=== PATIENT | male | born 1950 | race Caucasian/White ===

== ENCOUNTER 2023-01-22 10:18 | Inpatient (IN) ==
--- NOTE | 2022-12-20 16:07 | PAT Medication Instructions ---
Medication Instructions Date of Service December 20, 2022 Home Medications albuterol sulfate 90 mcg/actuation aerosol inhaler 2 inh inhalation QID PRN sob amlodipine 5 mg tablet 5 mg PO HS apixaban 5 mg tablet (Eliquis) 5 mg PO BID aspirin 81 mg capsule 81 mg PO QAM atorvastatin 40 mg tablet 40 mg PO QAM lisinopril 10 mg tablet 10 mg PO QAM tiotropium bromide 2.5 mcg/actuation mist for inhalation (Spiriva Respimat) 2 inh inhalation QAM ASK your prescriber and surgeon apixaban 5 mg tablet (Eliquis) 5 mg PO BID aspirin 81 mg capsule 81 mg PO QAM DO NOT take the morning of surgery lisinopril 10 mg tablet 10 mg PO QAM Take morning of surgery With a small sip of water, OTHERWISE NOTHING TO EAT OR DRINK AFTER MIDNIGHT: albuterol sulfate 90 mcg/actuation aerosol inhaler 2 inh inhalation QID PRN sob (use if needed; please bring with you to hospital day of surgery if possible) atorvastatin 40 mg tablet 40 mg PO QAM tiotropium bromide 2.5 mcg/actuation mist for inhalation (Spiriva Respimat) 2 inh inhalation QAM Take evening before surgery albuterol sulfate 90 mcg/actuation aerosol inhaler 2 inh inhalation QID PRN sob (if needed) amlodipine 5 mg tablet 5 mg PO HS Other Notes If you have any questions please call us at [phone] or [phone] or [phone] or [phone]
--- NOTE | 2022-12-29 11:17 | Anesthesiology Consultation ---
Date of Service December 29, 2022 Assessment & Plan (1) Encounter for pre-operative examination: - will attempt obtain copy of 12/25/22 PCP medical clearance and [address] [facility]. 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 Severely limited cervical extension s/p cervical fusions and h/o awake fiberoptic intubation for prostate surgery per (cardiac, OR nurse). C3-C5 posterior cervical discectomy: MAC 3, ETT 7.5 [facility]. - anesthesiologist request: Dr. Diaz. Case discussed with Dr. Diaz who advised patient could be intubated with glidescope. Anesthesiologist request marked for OR and anesthesia team, patient and his are aware this will be requested if Dr. Diaz is on the schedule that day. Chart Review Chart Review: Pending: Refer to Additional Notes / Consult section and Patient seen in Pre Admission Testing History Surgery Operation Date: 01/22/23 09:35 Proposed Procedures p L2-L3 Spinal Decompression and Fusion, Removal of Hardware L3-S1, Re- Instrumentation L3-S1 Spinal Cord Monitoring - Leroy Costa, Height/Weight Height: 5 ft 8 in Weight: 80.4 kg Allergies Allergy/AdvReac Type Severity Reaction Status Date / Time dexamethasone [From Decadron] AdvReac Intermediate Anxiety Verified 12/29/22 11:26 Medications Home Medications Medication Instructions Recorded Confirmed Last Taken albuterol sulfate 90 mcg/actuation 2 inh inhalation QID PRN sob 12/19/22 12/19/22 Unknown aerosol inhaler amlodipine 5 mg tablet 5 mg PO HS 12/19/22 12/19/22 Unknown apixaban 5 mg tablet (Eliquis) 5 mg PO BID 12/19/22 12/19/22 Unknown aspirin 81 mg capsule 81 mg PO QAM 12/19/22 12/19/22 Unknown atorvastatin 40 mg tablet 40 mg PO QAM 12/19/22 12/19/22 Unknown lisinopril 10 mg tablet 10 mg PO QAM 12/19/22 12/19/22 Unknown tiotropium bromide 2.5 2 inh inhalation QAM 12/19/22 12/19/22 Unknown mcg/actuation mist for inhalation (Spiriva Respimat) cholecalciferol (vitamin D3) 50 50 mcg PO QPM 12/29/22 12/29/22 Unknown mcg (2,000 unit) tablet (Vitamin D3) multivitamin 1 tab PO QPM 12/29/22 12/29/22 Unknown zinc gluconate 50 mg tablet 50 mg PO QPM 12/29/22 12/29/22 Unknown Additional Notes: Patient also takes multivitamin, Vitamin D and zinc usually in the evening. He was instructed and it was written on provided medication instructions to not take medication morning of surgery, can be taken afternoon or evening prior to surgery. Patient and his verbalized understanding and agreement, denied questions, concerns or additional medications/supplements. 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 patient had an episode where he "lost several hours" (2021) treated at [facility] Emergency Room. no current issues/no recent episode. History of giardia infection 2015 - no current issues Anxiety situational - specifically after spine surgery History of COVID-2021: no symptoms -- tested due to an exposure at the time. Hypertension Hyperlipidemia Chronic obstructive pulmonary disease "mild" and well controlled-last albuterol inhaler use last night-average daily use Degenerative disc disease Chronic back pain Hx of agent [place] exposure Bladder cancer dx 2008 Prostate cancer dx 2008 - prostatectomy On anticoagulant therapy History of cardioversion 06/2019 - "in and out of a.fib all the time" Atrial fibrillation dx 2019 --- follows with PCP Patient denies h/o seizures, heart attack, heart failure, DM, blood clots/DVTs or blood transfusions. Exercise / Class Metabolic Activity II 4-5 Yardwork/Stairs/Walk up hill (chronic shortness of breath ongoing x several yrs with 1 FOS; denies change or worsening-resolves with inhaler use; denies chest discomfort) Past Family History Family History Other No family history of adverse response to anesthesia Past Surgical History Surgical History History of cardiac cath last done ~2019 - no stents at [facility]. History of colonoscopy 2018 H/O lumbar discectomy with revision of lumbar fusion 2018 Hx of cervical spine surgery posterior cervical laminectomy 1982 S/P rotator cuff repair open left 2017 H/O arthroscopy of shoulder left shoulder 2017 H/O cystoscopy [id number] 2022 H/O prostatectomy total with Davinci 2008 H/O transurethral resection of bladder tumor (TURBT) 2008 S/P lumbar fusion L3/L4 L5/L6 2014 Status post cervical spinal fusion ACDF C2-C3 1985 S/P cervical spinal fusion posterior C1-C2 2012 S/P lumbar laminectomy 1979 Past Anesthesia History No Hx of Anesthesia Complications and No Family Hx of Anesthesia Complications History of PONV No Hx of PONV and No Hx of Motion Sickness Social History Smoking Status: Former smoker Do You Dip or Chew Tobacco: No Smoking End Date: 1986 Hx Alcohol Use: No Hx Substance Use: No substance use type: does not use Review of Systems Rare palpitations, denies associated dizziness, lightheadedness, chest discomfort or shortness of breath with palpitations. Occasional snoring, denies witnessed apneas. Patient denies chest pain, reflux, fever, chills, cough, or wheezing. Physical Exam Vital Signs Vitals BP 147/81 P 57 TEMP 98.6 SP02 96% on RA RESP 17 Physical Patient resting comfortably in chair in no acute distress, alert and oriented, responding appropriately throughout visit Severely limited cervical extension range of motion without pain TMD 3.5 finger breadths Mallampati Score 3 Dentition: intact, denies chipped or loose teeth, caps/crowns, implants or bridges Lungs: normal respiratory effort. Good air movement, clear throughout to auscultation, no adventitious breath sounds Cardiac: regular rate and rhythm, no murmurs noted Carotid arteries: negative bruit bilat Lab Results Anesthesia Preop Results Results Anesthesia Widget: Urine Color Yellow 12/29/22 Urine Appearance Clear (Clear) 12/29/22 Urine pH 7.5 (4.5-7.5) 12/29/22 Urine Specific [place] 1.019 (1.000-1.030) 12/29/22 Urine Protein Negative (Negative) 12/29/22 Urine Glucose (UA) Negative (Negative) 12/29/22 Urine Ketones Negative (Negative) 12/29/22 Urine Blood Negative (Negative) 12/29/22 Urine Nitrite Negative (Negative) 12/29/22 Urine Bilirubin Negative (Negative) 12/29/22 Urine Urobilinogen Negative (Negative) 12/29/22 Urine Leukocyte Esterase Negative (Negative) 12/29/22 Blood Type A Positive 12/29/22 Antibody Screen NEGATIVE 12/29/22 Testing Laboratory Results 12/21/2022 WBC: 5.9 H/H: 14/44 PLATELETS: 196 SODIUM: 140 POTASSIUM: 4.3 CHLORIDE: 105 CO2: 28 BUN: 20 CREATININE: 1 GLUCOSE: 108 PT: 14 PTT: 32 INR: 1.2 Electrocardiogram Date: 12/29/22 Afib with slow ventricular response, rate 54 bpm Chest X-Ray Date: 12/21/22 No acute intrathoracic process Echocardiogram Date: 07/07/19 KIARA EF 55% Normal LV wall motion RVSP 68 mmHg (see stress echo PA pressure 07/2019) Severely dilated LA Stress Test Date: 07/08/19 Pharmacologic No evidence of ischemic change or old RI Normal LV wall motion EF 60% Cardiac Catheterization Date: 07/21/19 Left main: no angiographically significant disease LAD: no angiographically significant disease LCx: no angiographically significant disease RCA: no angiographically significant disease Borderline mild pulmonary hypertension, mean PA pressure 27 mmHg
[~2023-01-22 10:18] MED LIST: ACETAMINOPHEN 500 MG TAB PO SCH; CeleBREX 200 MG CAP PO SCH; DexMEDEtomidine HCL IV 100 MCG/ML VIAL IV ONE; GABAPENTIN 300 MG CAP PO SCH; LR 15ML/HR IV SCH; LR 60ML/HR IV SCH
[2023-01-22] MEDS ORDERED: LIDOCAINE 2% 2 ML VIAL/AMP(20MG/ML) INFIL ONE (11:01)
[2023-01-22] MEDS ORDERED: PROPOFOL IV EMULSION 10 MG/ML 20 ML VIAL IV ONE (11:01)
[2023-01-22] MEDS ORDERED: ONDANSETRON INJ 2 MG/ML 2 ML VIAL ONE (11:01)
[2023-01-22] MEDS ORDERED: fentaNYL citrate PF 100 MCG/2 ML VIAL ONE ×2 (11:01→13:01)
--- NOTE | 2023-01-22 12:14 | History & Physical Bridge Note ---
Date of Service January 22, 2023 History & Physical Bridge Note I have examined the patient, reviewed the History & Physical and in the interval since the performance of the History & Physical I have noted the following changes of clinical significance: no changes noted
--- NOTE | 2023-01-22 12:15 | History & Physical Report ---
Date of Service January 22, 2023 Assessment & Plan (1) Neurogenic claudication due to lumbar spinal stenosis: Plan: L2-L3 decompression and fusion, removal of hardware L3-S1, reinstrumentation L3- S1 History of Present Illness Chief Complaint: Back pain Primary Care Provider: Charles Plata DO This is a 72-year-old male who presents with chronic persistent back and leg pain after failing extensive course of nonoperative care is here for surgical invention. Allergies Allergy/AdvReac Type Severity Reaction Status Date / Time dexamethasone [From Decadron] AdvReac Intermediate Anxiety Verified 01/22/23 10:52 Home Medications Medication Instructions Recorded Confirmed Type albuterol sulfate 90 mcg/actuation 2 inh inhalation QID PRN sob 12/19/22 01/22/23 History aerosol inhaler amlodipine 5 mg tablet 5 mg PO HS 12/19/22 01/22/23 History apixaban 5 mg tablet (Eliquis) 5 mg PO BID 12/19/22 01/22/23 History aspirin 81 mg capsule 81 mg PO QAM 12/19/22 01/22/23 History atorvastatin 40 mg tablet 40 mg PO QAM 12/19/22 01/22/23 History lisinopril 10 mg tablet 10 mg PO QAM 12/19/22 01/22/23 History tiotropium bromide 2.5 2 inh inhalation QAM 12/19/22 01/22/23 History mcg/actuation mist for inhalation (Spiriva Respimat) cholecalciferol (vitamin D3) 50 50 mcg PO QPM 12/29/22 01/22/23 History mcg (2,000 unit) tablet (Vitamin D3) multivitamin 1 tab PO QPM 12/29/22 01/22/23 History zinc gluconate 50 mg tablet 50 mg PO QPM 12/29/22 01/22/23 History Past Med/Surg History Medical History (Updated 01/22/23 @ 12:15 by Leroy Costa DO) Difficult intubation 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 Severely limited cervical extension s/p cervical fusions and h/o awake fiberoptic intubation for prostate surgery per (cardiac, OR nurse). C3- C5 posterior cervical discectomy: MAC 3, ETT 7.5 [facility]. 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 patient had an episode where he "lost several hours" (2021) treated at [facility] Emergency Room. no current issues/no recent episode. History of giardia infection 2016 - no current issues Anxiety situational - specifically after spine surgery History of COVID-19 2021: no symptoms -- tested due to an exposure at the time. Hypertension Hyperlipidemia Chronic obstructive pulmonary disease "mild" and well controlled-last albuterol inhaler use last night-average daily use Degenerative disc disease Chronic back pain Hx of agent [place] exposure Bladder cancer dx 2008 Prostate cancer dx 2008 - prostatectomy On anticoagulant therapy History of cardioversion 06/2019 - "in and out of a.fib all the time" Atrial fibrillation dx 2019 --- follows with PCP Surgical History History of cardiac cath last done ~2019 - no stents at [facility]. History of colonoscopy 2018 H/O lumbar discectomy with revision of lumbar fusion 2018 Hx of cervical spine surgery posterior cervical laminectomy 1981 S/P rotator cuff repair open left 2017 H/O arthroscopy of shoulder left shoulder 2017 H/O cystoscopy [id number] 2022 H/O prostatectomy total with Davinci 2009 H/O transurethral resection of bladder tumor (TURBT) 2008 S/P lumbar fusion L3/L4 L5/L6 2014 Status post cervical spinal fusion ACDF C2-C3 1985 S/P cervical spinal fusion posterior C1-C2 2012 S/P lumbar laminectomy 1979 Family History Other No family history of adverse response to anesthesia Social History Smoking Status: Former smoker Tobacco Type: Cigarettes Smoking End Date: 1986; Second Hand Exposure: No; Do You Dip or Chew Tobacco: No; Tobacco Cessation Education Requested by Patient: No Hx Alcohol Use: No Hx Substance Use: No Preferred Language: Yakut Communication Ability: Effective Business Analyst Project Manager Required: No Beliefs That Will Affect Care: None Current Living Situation: Spouse Other Information That Helps Us Care for You: No Feels Safe at Home: Yes Safety Concerns: Feels Safe At This Time Assistive Devices: Glasses Physical Exam Physical Exam: Patient is alert and oriented Heart regular rhythm Lungs clear Results & Data Results & Data Vital Signs (Past 12 Hours) Vital Signs Temp Pulse Resp BP Pulse Ox O2 Del Method 01/22/23 11:26 70 20 185/97 H 98 Room Air 01/22/23 10:44 36.6 C 60 20 187/115 H 98 Room Air
[2023-01-22] MEDS ORDERED: PROMETHAZINE HCL 12.5 MG in SODIUM CHLORIDE 0.9% 50 ML IV PRN ×2 (12:31→16:59)
[2023-01-22] MEDS ORDERED: ATROPINE SULFATE 0.1 MG/ML 10ML SYR IV PRN (12:31)
[2023-01-22] MEDS ORDERED: ePHEDrine sulfate 50 MG/ML AMP IV PRN (12:31)
[2023-01-22] MEDS ORDERED: FLUMAZENIL 0.1 MG/1 ML 10 ML VIAL IV PRN (12:31)
[2023-01-22] MEDS ORDERED: LABETALOL HCL IV 5 MG/ML 20ML IV PRN (12:31)
[2023-01-22] MEDS ORDERED: ONDANSETRON INJ 2 MG/ML 2 ML VIAL IV PRN ×2 (12:31→16:59)
[2023-01-22] MEDS ORDERED: NALOXONE HCL 0.4 MG/1 ML VIAL/CARP IV PRN ×2 (12:31→16:59)
[2023-01-22] MEDS ORDERED: BUPIVACAINE/EPINEPHRINE 0.25% 1:200,000 30 ML VIAL ONE (12:34)
[2023-01-22] MEDS ORDERED: SODIUM CHLORIDE 0.9% 250 ML IV PRN (12:34)
[2023-01-22] MEDS ORDERED: ceFAZolin 330 MG/ML 1 GM VIAL ONE (12:35)
[2023-01-22] MEDS ORDERED: ROCURONIUM BROMIDE 10 MG/ML 5 ML VIAL IV ONE (12:39)
[2023-01-22] MEDS ORDERED: MIDAZOLAM HCL 1 MG/ML 2ML VIAL ONE (12:57)
[2023-01-22] MEDS ORDERED: PHENYLEPHRINE 100MCG/ML 10ML SYR IV ONE (13:43)
[2023-01-22] MEDS ORDERED: ePHEDrine sulfate 50 MG/5 ML SYR ONE (13:43)
[2023-01-22] MEDS ORDERED: ALBUMIN HUMAN 5% 12.5 GM/250 ML VIAL IV ONE (14:24)
[2023-01-22] MEDS ORDERED: FLOSEAL HEMOSTATIC MATRIX 10ML TOP ONE (14:49)
[2023-01-22] MEDS ORDERED: SUGAMMADEX SODIUM 200 MG/2 ML VIAL IV ONE (14:52)
--- NOTE | 2023-01-22 15:01 | Operative Report ---
Post Operative Report Pre & Post Diagnosis Operation Date: 01/22/23 11:55 Pre-Op Diagnosis: Neurogenic Claudication due to Lumbar Spinal Stenosis Post-Op Diagnosis: Neurogenic Claudication due to Lumbar Spinal Stenosis I identified the patient and participated in the time-out.: Yes Procedure Operation Date: 01/22/23 11:55 Actual Procedures #1 removal of posterior segmental instrumentation L3-S1. #2 exploration of fusion L3-S1. #3 number decompression with bilateral medial facetectomies and foraminotomies L2-L3. #4 posterior spinal fusion L2-L3. #5 placement posterior instrumentation L2-S1. #6 interbody fusion L2-L3. #7 placement of Spira 13 x 26 mm cage at L2-3 per #8 placement locally harvested morselized autograft in the posterior gutters per #9 placement I factor interbody space and infuse collagen sponge, master graft in the posterior gutters. Surgeon Leroy Costa, Crusher Machine Operator Marissa Ching Estimated Blood Loss 650 Findings Consistent with Post-Op Diagnosis Specimens None Indications This is a 72-year-old male who presents above-mentioned diagnosis after failing course of nonoperative care is here for surgical invention. Description of Procedure Patient was met with identified informed consent obtained. Patient was then taken to the operative suite underwent patient placed in a prone position on the [place] table on top of the Stevenson frame. All bony prominences well-padded eyes inspected to ensure no external pressure placed upon him. This point lumbar spine was prepped and draped in normal sterile fashion. Sharp dissection with the assistance of Bovie cautery form down to and exposing the lamina of L2 and instrumentation at L3 L4-5 and sacral ala bilaterally. Then proceeded with the hardware bilaterally explored the fusion mass noted to be intact. Then performed a complete laminectomy of L2 including bilateral male facetectomies and foraminotomies addressing all spinal stenosis. Pedicle screws were placed in L2-L3 and S1 levels bilaterally but retaining the left S1 pedicle screw with assistance of fluoroscopy and appropriate size bradly placed. By way of transforaminal approach on the left discectomy L2-L3 was performed endplates guarded to subcortical bone and a 13 x 26 mm Spira cage with I factor tapped in position. The rods were then locked in final position bilaterally for the transverse processes of L2-L3 burred to 6 bone. Infuse collagen sponge, mass graft local graft was placed in the posterior gutters. 15 round LUIS drain inserted. Incision was then closed with 1 Vicryl to fascia 2-0 Vicryl subcutaneously and 4 Monocryl for final skin closure. Steri-Strips and sterile dressing placed. Patient waken taken to PACU stable condition. Please note spinal cord monitoring was utilized at the procedure no changes noted. Lastly Marissa Ching was present at the entire procedure and all the patient positioning complex course of the surgery and final skin closure. I attest to the content of the Intraoperative Record and any orders documented therein. Any exceptions are noted below.
--- NOTE | 2023-01-22 15:07 | Fluoroscopy Report ---
INTRAOPERATIVE RADIOGRAPHS CLINICAL HISTORY: Lumbar spinal fusion surgery. Fluoro time: 16 seconds Ka,r: 10.61 mGy FINDINGS: 4 spot fluoroscopic views of the lumbar spine are presented. There is postsurgical change f rom discectomy at L2-L3 with laminectomy and posterior fusion at L2-S1. Interpedicular screws are pre sent at all levels with the exception of L4 and L5. The orthopedic hardware appears intact. IMPRESSION: Intraoperative images from lumbar spinal fusion surgery as above. Electronically signed by: Moustapha Bah M.D. 01/22/2023 3:06 PM
[2023-01-22] MEDS: fentaNYL citrate PF 100 MCG/2 ML VIAL IV PRN ×4 (15:34→15:49)
[2023-01-22] MEDS: HYDROmorphone INJ 1 MG/ML SYRINGE IV PRN ×2 (15:56→16:01)
--- NOTE | 2023-01-22 16:10 | Anesthesiology Progress Note ---
Date of Service January 22, 2023 Anesthesia Post Procedure Vital Signs Vital Signs: Temp Pulse Pulse Resp BP BP Pulse Ox 01/22/23 15:55 70 13 136/90 95 01/22/23 15:45 70 16 157/97 H 96 01/22/23 15:35 69 18 164/91 H 96 01/22/23 15:25 72 20 155/97 H 95 01/22/23 15:18 36.2 C L 67 20 176/88 H 95 01/22/23 11:26 70 20 185/97 H 98 01/22/23 10:44 36.6 C 60 20 187/115 H 98 O2 Del Method O2 Flow Rate 01/22/23 15:55 Nasal Cannula 2 01/22/23 15:45 Nasal Cannula 2 01/22/23 15:35 Oxymask 10 01/22/23 15:25 Oxymask 10 01/22/23 15:18 Oxymask 10 01/22/23 11:26 Room Air 01/22/23 10:44 Room Air Pain Intensity Bilateral Lower Back: Pain Intensity: 6 Transfer of Care Handoff Completed per policy Notes Mental Status: alert / awake / arousable Patient Amnestic to Procedure: Yes Nausea / Vomiting: adequately controlled Pain: adequately controlled Airway Patency, RR, SpO2: stable & adequate BP & HR: stable & adequate Hydration State: stable & adequate Anesthetic Complications: no major complications apparent and Pt Satisfied with anesthetic care
[2023-01-22] MEDS ORDERED: ALBUTEROL HFA 8 GM INHALER INH PRN (16:59)
[2023-01-22] MEDS ORDERED: ONDANSETRON 4 MG OD TAB PO PRN (16:59)
[2023-01-22] MEDS ORDERED: LORazepam 0.5 MG in SYRINGE 0.25 ML IV PRN (16:59)
[2023-01-22] MEDS ORDERED: diphenhydrAMINE Capsule 25 MG CAP PO PRN (16:59)
[2023-01-22] MEDS ORDERED: METOCLOPRAMIDE HCL INJ 5 MG/ML 2 ML VIAL IV PRN (16:59)
[2023-01-22] MEDS ORDERED: bisacodyL 10 MG SUPP PR PRN (16:59)
[2023-01-22] MEDS ORDERED: SOD PHOSPHATE/SOD BIPHOSPHATE ENEMA 132 ML BTL PR PRN (16:59)
[2023-01-22] MEDS ORDERED: DO NOT ADMINISTER PNEUMOCOCCAL VACCINE PRN (16:59)
[2023-01-22] MEDS ORDERED: traMADol HCL 50 MG TABLET PO PRN (16:59)
[2023-01-22] MEDS ORDERED: ACETAMINOPHEN 500 MG TAB PO PRN (16:59)
[2023-01-22] MEDS ORDERED: DO NOT ADMINISTER FLU VACCINE PRN (16:59)
[2023-01-22] MEDS ORDERED: LORazepam 0.5 MG TAB PO PRN (16:59)
[2023-01-22] MEDS ORDERED: MAGNESIUM HYDROXIDE SUSP 30 ML UDC PO PRN (16:59)
[2023-01-22] MEDS ORDERED: FAMOTIDINE 20 MG TAB PO PRN (16:59)
[2023-01-22] MEDS ORDERED: HYDROmorphone INJ 0.5 MG/0.5 ML SYR IV PRN (16:59)
[2023-01-22] MEDS ORDERED: ALUMINUM/MAGNESIUM SUSP 30 ML UDC PO PRN (16:59)
[2023-01-22] MEDS ORDERED: HYDROmorphone INJ 1 MG/ML SYRINGE IV PRN (16:59)
[2023-01-22] MEDS ORDERED: ACETAMINOPHEN 1,000 MG/100 ML VIAL IV PRN (16:59)
[2023-01-22] MEDS: LACTATED RINGER'S 1,000 ML IV SCH ×3 (17:35→19:54)
[2023-01-22] MEDS: oxyCODONE HCL IR 5 MG TAB (IMMEDIATE RELEASE) PO PRN ×2 (17:56→23:22)
--- NOTE | 2023-01-22 17:57 | Hospitalist Consultation ---
Date of Consultation January 22, 2023 Assessment & Plan (1) S/P spinal surgery: This is a 72yo M with a PMH of HTN, atrial fibrillation on Eliquis, remote history of CVA, COPD and other medical problems listed below who is POD#0 s/p removal of posterior segmental instrumentation L3-S1 and exploration of fusion L3-S1, number decompression with bilateral medial facetectomies and foraminotomies L2-L3 and posterior spinal fusion L2-L3 and placement posterior instrumentation L2-S1 by Dr. Costa. POD#0 s/p removal of posterior segmental instrumentation L3-S1 and exploration of fusion L3-S1, number decompression with bilateral medial facetectomies and foraminotomies L2-L3 and posterior spinal fusion L2-L3 and placement posterior instrumentation L2-S1 by Dr. Costa. Per ortho for pain control, wound care, anticoagulation and activities Monitor H&H (EBL 650ml, no preop hgb in chart review). Monitor CBC and consider transfusion for hgb <8 Continue incentive spirometry, PT/OT when appropriate (2) Atrial fibrillation: (3) On anticoagulant therapy: Not on rate control agent, holding Eliquis in perioperative setting, resume as able per Dr. Costa (4) Hypertension: Slightly elevated at 146/78 in setting of post-op pain, optimize pain control Continue home amlodipine and lisinopril (5) Chronic obstructive pulmonary disease: Chronic, stable. Continue home inhalers as needed (6) Transient ischemic attack (TIA): Remote history, continue aspirin and statin DVT Ppx: SCDs per primary, resume Eliquis as able Code status: FULL PCP: Jerry Nava Dispo: Per primary service Patient seen in collaboration with Dr. Valdez. Please see addendum. Thank you for this consultation. We will follow the patient with you during their hospital stay. You [facility] via MyVR. Supervising Physician Co-Signing Physician Notes Patient is a 72-year-old male with history of atrial fibrillation on chronic anticoagulation with Eliquis, COPD, hypertension, hyperlipidemia, CKD stage III and other medical problems was consulted for postop medical management. Patient admits to have pain at surgical site postoperatively. He denies any chest pain, dyspnea, dizziness, nausea, vomiting, abdominal pain, tingling, numbness of lower extremities. Significant blood loss noted on operative report. I personally reviewed prior blood work and imaging studies. Physical Exam: Vitals signs as noted above General Appearance:Moderately built and nourished, no apparent distress Head: normocephalic, Atraumatic Eyes: normal inspection, EOMI Neck: supple, Trachea midline Respiratory/Chest: Normal breath sounds, CTA, No accessory muscle use Cardiovascular: Irregularly irregular,No murmur Abdomen/GI:Soft, Non tender, Bowel sounds present Back+ surgical site in dressing,+ drain Extremities/Musculoskeletal:normal inspection, no edema Neurologic/Psych:AAOX3, grossly no focal neurological deficits Skin: normal color, warm Neurogenic Claudication due to Lumbar Spinal Stenosis S/P lumbar decompression, fusion surgery by Dr. Costa on 2422 Wound care, activity, DVT prophylaxis as per primary team Monitor for postop anemia We will transfuse PRBCs as needed Pain control Incentive spirometry Bowel regimen to prevent constipation Atrial fibrillation H/O TIA Currently not on any rate or rhythm control medications Resume Eliquis as soon as possible I personally reviewed the record. Patient is interviewed and examined at bedside. Patient's care is coordinated with Komal Sotelo PA-C. Please refer to the documentation above for details of patient's presentation and for discussion of other issues. History of Present Illness Reason for Consultation: post op med mgmt Requesting Physician: Attending Physician: Leroy Costa, DO History of Present Illness This is a 72yo M with a PMH of HTN, atrial fibrillation on Eliquis, remote history of CVA, COPD and other medical problems listed below who is POD#0 s/p removal of posterior segmental instrumentation L3-S1 and exploration of fusion L3-S1, number decompression with bilateral medial facetectomies and foraminotomies L2-L3 and posterior spinal fusion L2-L3 and placement posterior instrumentation L2-S1 by Dr. Costa. Experiencing some post-operative pain improved with pain medication. No distal pain or numbness in BLE. No F/C, lightheadedness, CP, SOB, N/V, abdominal pain, dysuria, diarrhea or constipation. Follows with KARINA Nava for primary care. Eliquis and aspirin have been held for a week pre-operatively. Allergies Allergy/AdvReac Type Severity Reaction Status Date / Time dexamethasone [From Decadron] AdvReac Intermediate Anxiety Verified 01/22/23 10:52 Home Medications Medication Instructions Recorded Confirmed Type albuterol sulfate 90 mcg/actuation 2 inh inhalation QID PRN sob 12/19/22 01/22/23 History aerosol inhaler amlodipine 5 mg tablet 5 mg PO HS 12/19/22 01/22/23 History apixaban 5 mg tablet (Eliquis) 5 mg PO BID 12/19/22 01/22/23 History aspirin 81 mg capsule 81 mg PO QAM 12/19/22 01/22/23 History atorvastatin 40 mg tablet 40 mg PO QAM 12/19/22 01/22/23 History lisinopril 10 mg tablet 10 mg PO QAM 12/19/22 01/22/23 History tiotropium bromide 2.5 2 inh inhalation QAM 12/19/22 01/22/23 History mcg/actuation mist for inhalation (Spiriva Respimat) cholecalciferol (vitamin D3) 50 50 mcg PO QPM 12/29/22 01/22/23 History mcg (2,000 unit) tablet (Vitamin D3) multivitamin 1 tab PO QPM 12/29/22 01/22/23 History zinc gluconate 50 mg tablet 50 mg PO QPM 12/29/22 01/22/23 History Patient History Medical History Difficult intubation 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 Severely limited cervical extension s/p cervical fusions and h/o awake fiberoptic intubation for prostate surgery per (cardiac, OR nurse). C3- C5 posterior cervical discectomy: MAC 3, ETT 7.5 [facility]. 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 patient had an episode where he "lost several hours" (2021) treated at [facility] Emergency Room. no current issues/no recent episode. History of giardia infection 2016 - no current issues Anxiety situational - specifically after spine surgery History of COVID-19 2021: no symptoms -- tested due to an exposure at the time. Hypertension Hyperlipidemia Chronic obstructive pulmonary disease "mild" and well controlled-last albuterol inhaler use last night-average daily use Degenerative disc disease Chronic back pain Hx of agent [place] exposure Bladder cancer dx 2009 Prostate cancer dx 2008 - prostatectomy On anticoagulant therapy History of cardioversion 06/2019 - "in and out of a.fib all the time" Atrial fibrillation dx 2019 --- follows with PCP Surgical History History of cardiac cath last done ~2019 - no stents at [facility]. History of colonoscopy 2018 H/O lumbar discectomy with revision of lumbar fusion 2018 Hx of cervical spine surgery posterior cervical laminectomy 1981 S/P rotator cuff repair open left 2017 H/O arthroscopy of shoulder left shoulder 2016 H/O cystoscopy [id number] 2022 H/O prostatectomy total with Davinci 2008 H/O transurethral resection of bladder tumor (TURBT) 2008 S/P lumbar fusion L3/L4 L5/L6 2014 Status post cervical spinal fusion ACDF C2-C3 1985 S/P cervical spinal fusion posterior C1-C2 2012 S/P lumbar laminectomy 1979 Family History Other Cancer No family history of adverse response to anesthesia Stroke Social History Smoking Status: Former smoker Tobacco Type: Cigarettes Smoking End Date: 1986; Second Hand Exposure: No; Do You Dip or Chew Tobacco: No; Tobacco Cessation Education Requested by Patient: No Hx Alcohol Use: No Hx Substance Use: No Preferred Language: Malagasy Communication Ability: Effective [employer] Finisher Required: No Beliefs That Will Affect Care: None Current Living Situation: Spouse Other Information That Helps Us Care for You: No Feels Safe at Home: Yes Safety Concerns: Feels Safe At This Time Assistive Devices: Glasses Review of Systems Review of Systems: At least ten systems reviewed and negative except as noted in the HPI. Physical Exam Physical Exam: Please see Dr. Valdez's addendum for physical exam. Results & Data Results & Data Vital Signs (Past 12 Hours) Vital Signs Temp Pulse Pulse Resp BP BP Pulse Ox 01/22/23 17:30 37.0 C 74 16 133/79 95 01/22/23 16:30 36.5 C 75 14 141/73 H 96 01/22/23 16:05 36.5 C 71 20 146/84 H 96 01/22/23 15:55 70 13 136/90 95 01/22/23 15:45 70 16 157/97 H 96 01/22/23 15:35 69 18 164/91 H 96 01/22/23 15:25 72 20 155/97 H 95 01/22/23 15:18 36.2 C L 67 20 176/88 H 95 01/22/23 11:26 70 20 185/97 H 98 01/22/23 10:44 36.6 C 60 20 187/115 H 98 O2 Del Method O2 Flow Rate 01/22/23 17:30 Nasal Cannula 1 01/22/23 16:30 Nasal Cannula 01/22/23 16:05 Nasal Cannula 2 01/22/23 15:55 Nasal Cannula 2 01/22/23 15:45 Nasal Cannula 2 01/22/23 15:35 Oxymask 10 01/22/23 15:25 Oxymask 10 01/22/23 15:18 Oxymask 10 01/22/23 11:26 Room Air 01/22/23 10:44 Room Air
[2023-01-22] MEDS ORDERED: amLODIPine BESYLATE 5 MG TAB PO SCH (21:00)
[2023-01-22] MEDS: ZINC SULFATE 220 MG CAPSULE PO SCH (21:03)
[2023-01-22] MEDS: ceFAZolin 2000MG 2,000 MG/15 ML SYR IV SCH (21:06)
[2023-01-22] MEDS: DOCUSATE SODIUM/SENNA 50/8.6MG TAB PO SCH (21:06)
[2023-01-23] MEDS: oxyCODONE HCL IR 5 MG TAB (IMMEDIATE RELEASE) PO PRN ×4 (03:02→17:05)
[2023-01-23] MEDS: LACTATED RINGER'S 1,000 ML IV SCH (03:04)
[2023-01-23] MEDS: ceFAZolin 2000MG 2,000 MG/15 ML SYR IV SCH (05:21)
[2023-01-23] MEDS: POLYETHYLENE (MIRALAX) 17 GM PACK PO SCH ×3 (05:21→17:00)
[2023-01-23 06:37] LABS: Basophils # (auto) 0.04 K/uL (0.00-0.20); Basophils % (auto) 0.5 %; Eosinophils # (auto) 0.15 K/uL (0.00-0.50); Hematocrit (blood only) 31.1 % (42.0-52.0); Hemoglobin 10.4 g/dl (14.0-18.0); Immature Granulocytes # (auto) 0.04 K/uL (0.01-0.20); Immature Granulocytes % (auto) 0.5 %; Lymphocytes # (auto) 1.28 K/uL (1.20-3.40); Lymphocytes % (auto) 17.3 %; Mean Corpuscular Hemoglobin 29.1 pg (25.0-34.0); Mean Corpuscular Hgb Conc 33.4 g/dL (32.0-36.0); Mean Corpuscular Volume 87.1 fL (80.0-100.0); Mean Platelet Volume 9.6 fL (9.4-12.4); Monocytes # (auto) 0.63 K/uL (0.11-0.59); Monocytes % (auto) 8.5 %; Neutrophils # (auto) 5.26 K/uL (1.40-6.50); Neutrophils % (auto) 71.2 %; Platelet Count 151 K/uL (130-400); RDW Coefficient of Variation 12.9 % (11.5-14.5); RDW Standard Deviation 41.1 fL (36.4-46.3); Red Blood Count 3.57 M/uL (4.70-6.10)
[2023-01-23 06:56] LABS: BUN Creatinine Ratio 16.9 (10-20); Calcium 8.5 mg/dl (8.6-10.3); Creatinine Clr Calc Pharmacy 70.4 ml/min; Est GFR (African American) 97.6 ml/min; Est GFR (Non-African American) 84.2 ml/min; Potassium 3.9 mmol/L (3.5-5.1)
[2023-01-23] MEDS: ATORVASTATIN 40 MG TAB PO SCH (08:37)
[2023-01-23] MEDS: lisinopril 10 MG TAB PO SCH (08:37)
[2023-01-23] MEDS: ASPIRIN 81 MG ECTAB PO SCH (08:37)
[2023-01-23] MEDS: UMECLIDINIUM BROMIDE 62.5MCG/BLISTER 7 PUFFS/INHALER INH SCH (08:37)
--- NOTE | 2023-01-23 13:22 | Hospitalist Progress Note ---
Date of Service January 23, 2023 Assessment & Plan (1) S/P spinal surgery: Plan: This is a 72yo M with a PMH of HTN, atrial fibrillation on Eliquis, remote history of CVA, COPD and other medical problems listed below who is POD#1 s/p removal of posterior segmental instrumentation L3-S1 and exploration of fusion L3-S1, number decompression with bilateral medial facetectomies and foraminotomies L2-L3 and posterior spinal fusion L2-L3 and placement posterior instrumentation L2-S1 by Dr. Costa. POD#1 s/p removal of posterior segmental instrumentation L3-S1 and exploration of fusion L3-S1, number decompression with bilateral medial facetectomies and foraminotomies L2-L3 and posterior spinal fusion L2-L3 and placement posterior instrumentation L2-S1 by Dr. Costa. Per ortho for pain control, wound care, anticoagulation and activities Monitor H&H (EBL 650ml, no preop hgb in chart review). Postop hgb stable at 10.4, continue to monitor with AM labs Continue incentive spirometry, PT/OT when appropriate (2) Atrial fibrillation: (3) On anticoagulant therapy: Plan: Not on rate control agent, holding Eliquis in perioperative setting, resume as able per Dr. Costa (4) Hypertension: Plan: Was slightly elevated at 146/78 in setting of post-op pain Currently BP downtrending, will hold PM amlodipine at this time Started on 2 bags of NSS Continue AM lisinopril for now, assess need to administer in the AM (5) Chronic obstructive pulmonary disease: Plan: Chronic, stable. Continue home inhalers as needed (6) Transient ischemic attack (TIA): Plan: Remote history, continue aspirin and statin DVT Ppx: SCDs per primary, resume Eliquis as able Code status: FULL PCP: Jerry Nava Dispo: Per primary service Thank you for this consultation. We will follow the patient with you during their hospital stay. You can reach a member of the [facility] Hospitalist Team 11/09 via [email or web address]. Admission and Anticipated Discharge Date Admission Date: January 22, 2023 Subjective Pt seen sitting at bedside in chair. Family at bedside. Noted some slight pain. However denied chest pain SOB, abdominal pain. States he is working on a BM. Review of Systems Review of Systems: All systems reviewed & are unremarkable except as noted in Subjective Physical Exam Physical Exam: General: Alert, oriented. Skin: Noted bandage on back Psych: Appropriate mood and affect Neuro: Difficulty with movements HEENT: NC/AT Chest: Nontender to palpation. CV: RRR, Normal s1, s2. Resp: no increased effort of breathing. Abdomen:Soft, nontender Extremities: No edema in lower extremities bilaterally. Results & Data Results & Data Vital Signs (Past 12 Hours) Vital Signs Temp Pulse Resp BP Pulse Ox O2 Del Method O2 Flow Rate 01/23/23 07:17 37.5 C 59 L 18 109/64 92 Room Air 01/23/23 05:39 95 Room Air 01/23/23 03:07 36.9 C 67 18 112/68 96 Nasal Cannula 2
--- NOTE | 2023-01-23 13:30 | Orthopedic Progress Note ---
Date of Service January 23, 2023 Assessment & Plan (1) Neurogenic claudication due to lumbar spinal stenosis: Plan: This time went straight physical therapy monitor his LUIS output hopefully transition to home in the next few days. Admission and Anticipated Discharge Date Admission Date: January 22, 2023 Subjective Patient is in the chair at the bedside. Back pain controlled leg pain improved Physical Exam Physical Exam: Patient is concerned to testing. Appears comfortable. Results & Data Vital Signs (Past 12 Hours) Vital Signs Temp Pulse Resp BP Pulse Ox O2 Del Method O2 Flow Rate 01/23/23 07:17 37.5 C 59 L 18 109/64 92 Room Air 01/23/23 05:39 95 Room Air 01/23/23 03:07 36.9 C 67 18 112/68 96 Nasal Cannula 2 Queries Orthopedic Spine Acute Posthemorrhagic Anemia: Yes
[2023-01-23] MEDS ORDERED: SODIUM CHLORIDE 0.9% 1,000 ML IV SCH (18:15)
[2023-01-23] MEDS: DOCUSATE SODIUM/SENNA 50/8.6MG TAB PO SCH (21:19)
[2023-01-23] MEDS: ZINC SULFATE 220 MG CAPSULE PO SCH (21:19)
[2023-01-23] MEDS: hydrOXYzine HCl 25 MG TAB PO PRN (22:01)
[2023-01-24] MEDS: POLYETHYLENE (MIRALAX) 17 GM PACK PO SCH ×4 (00:55→17:15)
[2023-01-24] MEDS ORDERED: NITROGLYCERIN SL 0.4 MG/TAB TAB SL STA (06:03)
[2023-01-24] MEDS ORDERED: NITROGLYCERIN SL 0.4 MG/TAB TAB ONE (06:05)
--- NOTE | 2023-01-24 06:05 | Communication Note ---
Date of Service: January 24, 2023 Intermittent epigastric pain going to the chest since last night as per patient. Last episode related to A-fib as per patient Different from reflux. Patient denies shortness of breath. Some relief with nitroglycerin as per RN. EKG as per my interpretation rate 75, A-fib, normal axis, no ischemia AP Epigastric pain going to the chest History A-fib Nitro relief Troponin, CMP and lipase with a.m. labs now CT abdomen pelvis UA N.p.o. until CT results known
[2023-01-24] MEDS ORDERED: SODIUM CHLORIDE 0.9% 1,000 ML IV ONE (07:17)
[2023-01-24 07:43] LABS: Basophils # (auto) 0.02 K/uL (0.00-0.20); Basophils % (auto) 0.2 %; Eosinophils # (auto) 0.14 K/uL (0.00-0.50); Eosinophils % (auto) 1.6 %; Hematocrit (blood only) 30.6 % (42.0-52.0); Hemoglobin 10.5 g/dl (14.0-18.0); Immature Granulocytes # (auto) 0.04 K/uL (0.01-0.20); Immature Granulocytes % (auto) 0.4 %; Lymphocytes # (auto) 0.93 K/uL (1.20-3.40); Lymphocytes % (auto) 10.4 %; Mean Corpuscular Hemoglobin 29.3 pg (25.0-34.0); Mean Corpuscular Hgb Conc 34.3 g/dL (32.0-36.0); Mean Corpuscular Volume 85.5 fL (80.0-100.0); Mean Platelet Volume 9.5 fL (9.4-12.4); Monocytes # (auto) 1.03 K/uL (0.11-0.59); Monocytes % (auto) 11.6 %; Neutrophils # (auto) 6.74 K/uL (1.40-6.50); Neutrophils % (auto) 75.8 %; Platelet Count 144 K/uL (130-400); RDW Coefficient of Variation 12.6 % (11.5-14.5); Red Blood Count 3.58 M/uL (4.70-6.10)
[2023-01-24 07:52] LABS: Albumin Globulin Ratio 1.7 (0.9-2); Albumin Level 3.5 gm/dl (3.4-5.0); BUN Creatinine Ratio 17.8 (10-20); Calcium 8.5 mg/dl (8.6-10.3); Creatinine Clr Calc Pharmacy 69.7 ml/min; Est GFR (African American) 97.2 ml/min; Est GFR (Non-African American) 83.8 ml/min; Globulin 2.1 gm/dl (2.5-4.0); Total Protein 5.6 gm/dl (6.0-8.3)
[2023-01-24 07:58] LABS: Troponin I High Sensitivity 9.7 pg/ml (0-20)
[2023-01-24 07:59] LABS: Magnesium 1.9 mg/dl (1.7-2.4); Phosphorus 2.9 mg/dl (2.5-4.9)
[2023-01-24] MEDS: lisinopril 10 MG TAB PO SCH (08:01)
[2023-01-24] MEDS: ATORVASTATIN 40 MG TAB PO SCH (08:01)
[2023-01-24] MEDS: ASPIRIN 81 MG ECTAB PO SCH (08:01)
[2023-01-24] MEDS: UMECLIDINIUM BROMIDE 62.5MCG/BLISTER 7 PUFFS/INHALER INH SCH (08:01)
[2023-01-24 08:05] LABS: Partial Thromboplastin Ratio 1.1; Partial Thromboplastin Time 31 Seconds (21-31)
[2023-01-24 08:20] LABS: Appearance Urine Clear (Clear); Bilirubin Urine Negative (Negative); Blood Urine Negative (Negative); Color Urine Yellow; Glucose Urine UA Negative (Negative); Ketones Urine 1+ (Negative); Leukocyte Esterase Urine Negative (Negative); Nitrite Urine Negative (Negative); Protein Urine Negative (Negative); Specific Gravity Urine 1.006 (1.000-1.030); Urobilinogen Urine Negative (Negative); pH Urine 5.5 (4.5-7.5)
[2023-01-24] MEDS ORDERED: OPTIRAY 320 500ml IV ONE (09:14)
--- NOTE | 2023-01-24 09:52 | CT Scan Report ---
CT SCAN OF THE ABDOMEN AND PELVIS WITH IV CONTRAST CLINICAL HISTORY: Generalized abdominal pain. Low back pain. COMPARISON STUDY: No priors. TECHNIQUE: Following the IV administration of 89 cc of Optiray 320, CT scan of the abdomen and pelvi s is performed from the lung bases to the proximal femora. Images are reviewed in the axial, sagittal , and coronal planes. IV contrast was administered without complication. A dose lowering technique wa s utilized adhering to the principles of ALARA. The examination is modestly degraded by motion artifa ct. CT DOSE: 974.08 mGy.cm FINDINGS: Lung bases: The heart is enlarged and without pericardial effusion. The coronary arteries are densely calcified. There is a small hiatal hernia. Emphysematous change is suspected. There are trace pleura l effusions with dependent atelectasis. Liver: The contrast-enhanced liver is normal in size, contour, and attenuation. There is no intrahepa tic biliary ductal dilatation. The hepatic veins and portal veins are patent. A 2.9 cm hepatic cyst i s incidentally noted. Gallbladder: Unremarkable. Spleen: Normal in size and attenuation. A 13 mm splenic hypodensity on image #111 is pathologically i ndeterminate and statistically of doubtful significance. Pancreas: Unremarkable. Adrenal glands: Unremarkable. Kidneys: The contrast enhanced kidneys are normal in size and without hydronephrosis. The kidneys enh ance symmetrically. Abdominal vasculature: The abdominal aorta is normal in course and caliber noting mild to moderate at herosclerotic calcification. Bowel: There is moderate colonic fecal retention. No bowel obstruction is seen. The appendix is not visualized. Peritoneum: There is no intraperitoneal free air or abdominal ascites. There is a small fat-containin g umbilical hernia. Lymphadenopathy: None. Pelvic viscera: The bladder is largely decompressed from a Paige catheter. The bladder wall appears t hickened. The prostate gland is diminutive versus surgically absent. Skeletal structures: The skeletal structures are osteopenic. There is lumbosacral spondylosis with po stoperative change from spinal fusion at L2-S1. Lucency around the right interpedicular screw in L3 s uggests loosening. No lytic or blastic lesions are seen. Soft tissues: A surgical drain is in place within the posterior paraspinous soft tissues. There is ed morgan, foci of soft tissue gas, and fluid seen posterior to the thecal sac at the operative levels. A f luid collection just deep to the dermal surface posteriorly at the operative levels seen on image #10 1 measures approximately 7 x 1.5 x 3 cm. IMPRESSION: 1. The bladder is partially decompressed around a Paige catheter and appears thick-walled. Correlate with clinical findings and urinalysis. 2. There is evidence of recent lumbar spinal fusion surgery with a drain in place. No acute bony abno rmality is identified. 3. Postsurgical change/edema with associated subcutaneous gas is seen posterior to the thecal sac at the operative levels and is likely related to recent surgery. There is also a subcutaneous fluid alannah ection just deep to the dermal surface in the lower back which likely represents a seroma. The steril ity of these findings cannot be assessed by imaging and clinical correlation will be required. 4. Cardiomegaly and suspect emphysema. 5. Trace pleural effusions. 6. Additional findings as above. ACT 112: Negative or not required by law. Electronically signed by: Moustapha Bah M.D. 01/24/2023 9:51 AM
[2023-01-24] MEDS: oxyCODONE HCL IR 5 MG TAB (IMMEDIATE RELEASE) PO PRN ×2 (09:53→20:25)
--- NOTE | 2023-01-24 11:18 | Orthopedic Progress Note ---
Date of Service January 24, 2023 Assessment & Plan (1) Neurogenic claudication due to lumbar spinal stenosis: Plan: Alex is postoperative day 2 status post L3-S1 hardware removal, decompression and fusion L2-3 with instrumented fusion L2-S1. Will continue with physical therapy and ambulation today. Will DC Paige once more ambulatory. Maintain LUIS drain. Anticipate discharge home later on this week. There is consideration though he may need rehab. Admission and Anticipated Discharge Date Admission Date: January 22, 2023 Subjective Alex is postoperative day 2 status post hardware removal L3-S1, decompression instrumented fusion L2-S1. Pain is controlled. LUIS drain output last shift was 80 cc. Yesterday in physical therapy ambulating 3 feet. Paige still intact because of this. No other complaints Review of Systems Review of Systems: All systems reviewed & are unremarkable except as noted in HPI & below Physical Exam Physical Exam: Laying in bed in no acute distress Alert and oriented x 3 Lumbar dressing is clean dry intact with functioning LUIS drain Strength intact bilateral lower extremit calf soft nontender bilaterally y Results & Data Vital Signs (Past 12 Hours) Vital Signs Temp Pulse Resp BP BP Pulse Ox O2 Del Method 01/24/23 07:20 36.7 C 71 16 132/78 90 Room Air 01/24/23 05:51 36.7 C 80 16 142/85 H 92 Room Air Queries Orthopedic Spine Acute Posthemorrhagic Anemia: Yes
--- NOTE | 2023-01-24 14:28 | Hospitalist Progress Note ---
Date of Service January 24, 2023 Assessment & Plan (1) S/P spinal surgery: Plan: This is a 72yo M with a PMH of HTN, atrial fibrillation on Eliquis, remote history of CVA, COPD and other medical problems listed below who is POD#1 s/p removal of posterior segmental instrumentation L3-S1 and exploration of fusion L3-S1, number decompression with bilateral medial facetectomies and foraminotomies L2-L3 and posterior spinal fusion L2-L3 and placement posterior instrumentation L2-S1 by Dr. Costa. 01/22/2023: s/p removal of posterior segmental instrumentation L3-S1 and exploration of fusion L3-S1, number decompression with bilateral medial facetectomies and foraminotomies L2-L3 and posterior spinal fusion L2-L3 and placement posterior instrumentation L2-S1 by Dr. Costa. Per ortho for pain control, wound care, anticoagulation and activities Monitor H&H (EBL 650ml, no preop hgb in chart review). Postop hgb stable at 10.4, continue to monitor with AM labs Continue incentive spirometry, PT/OT when appropriate Remains medically stable and complaining of severe back pain without radiation Hemoglobin and electrolytes are stable (2) Atrial fibrillation: (3) On anticoagulant therapy: Plan: Not on rate control agent, holding Eliquis in perioperative setting, resume as able per Dr. Costa Eliquis has not been restarted yet (4) Hypertension: Plan: Was slightly elevated at 146/78 in setting of post-op pain Currently BP downtrending, will hold PM amlodipine at this time Started on 2 bags of NSS Continue AM lisinopril for now, assess need to administer in the AM Blood pressure remains stable at 132/78 (5) Chronic obstructive pulmonary disease: Plan: Chronic, stable. Continue home inhalers as needed (6) Transient ischemic attack (TIA): Plan: Remote history, continue aspirin and statin DVT Ppx: SCDs per primary, resume Eliquis as able Code status: FULL PCP: Jerry Nava Dispo: Per primary service Admission and Anticipated Discharge Date Admission Date: January 22, 2023 Subjective 01/24/2023 The patient was seen and examined in medical floor He is a status post L2-L3 spinal decompression and fusion and redo instrumentation L3-S1 Complains back pain without radiation Still draining serosanguineous fluid Review of Systems Review of Systems: All systems reviewed and are unremarkable except as noted below Physical Exam Physical Exam: Lying in bed comfortably Constitutional: well developed, well nourished and + ill appearing Eyes: PERRL, conjunctivae normal, anicteric sclerae ENMT: external ear and nose normal, oropharynx normal Neck: trachea midline, no thyromegaly Respiratory: no respiratory distress Auscultation: lungs clear to auscultation bilaterally Cardiovascular: Rate/Rhythm: + irregularly irregular; not tachycardic Heart Sounds: normal S1 and normal S2; no murmur Extremities: no edema Gastrointestinal (Abdomen): Inspection/Auscultation: normal bowel sounds; abdomen not distended Percussion/Palpation: abdomen soft; abdomen nontender Musculoskeletal: Lumbar spinal tenderness. No acute arthritis in any joint Neurologic: normal touch/pain/proprioception and moves all extremities; no focal motor deficits Psychiatric: A+Ox3, euthymic affect Lymphatic: no cervical or axillary lymphadenopathy Results & Data Results & Data Vital Signs (Past 12 Hours) Vital Signs Temp Pulse Resp BP BP Pulse Ox O2 Del Method 01/24/23 07:20 36.7 C 71 16 132/78 90 Room Air 01/24/23 05:51 36.7 C 80 16 142/85 H 92 Room Air Laboratory Results Short CBC 01/24/23 Range/Units 07:09 WBC 8.90 (4.8-10.8) K/ul Hgb 10.5 L (14.0-18.0) g/dl Hct 30.6 L (42.0-52.0) % Plt Count 144 (130-400) K/uL BMP 01/24/23 07:16 Sodium 140 Potassium 4.0 Chloride 106 Carbon Dioxide 28 BUN 16 Creatinine 0.90 Glucose 107 H Calcium 8.5 L Liver Function 01/24/23 Range/Units 07:16 Total Bilirubin 1.0 (0.2-1.0) mg/dl AST 21 (13-39) U/L ALT 13 (7-52) U/L Alkaline Phosphatase 48 (34-104) U/L Albumin 3.5 (3.4-5.0) gm/dl Urine 01/24/23 Range/Units Unknown Urine Color Yellow Urine Appearance Clear (Clear) Urine pH 5.5 (4.5-7.5) Ur Specific [place] 1.006 (1.000-1.030) Urine Protein Negative (Negative) Urine Glucose (UA) Negative (Negative) Medications Administered Current Inpatient Medications Acetaminophen (Acetaminophen 500 Mg Tab) 1,000 mg PO Q8H PRN PRN Reason: MILD Pain Scale 1,2,3 & Pre PT Stop: 02/21/23 16:58 Al Hydrox/Mg Hydrox/Simethicone (Aluminum/Magnesium Susp 30 Ml Udc) 30 ml PO Q6H PRN PRN Reason: Dyspepsia Stop: 02/21/23 16:58 Albuterol (Albuterol Hfa 8 Gm Inhaler) 2 puffs INH QID PRN PRN Reason: sob Stop: 02/21/23 16:58 Amlodipine Besylate (Amlodipine Besylate 5 Mg Tab) 5 mg PO [facility] Stop: 02/21/23 20:59 Last Admin: 01/22/23 21:06 Dose: 5 mg Aspirin (Aspirin 81 Mg Ectab) 81 mg PO [facility] Stop: 02/22/23 08:59 Last Admin: 01/24/23 08:01 Dose: 81 mg Atorvastatin Calcium (Atorvastatin 40 Mg Tab) 40 mg PO [facility] Stop: 02/22/23 08:59 Last Admin: 01/24/23 08:01 Dose: 40 mg Bisacodyl (Bisacodyl 10 Mg Supp) 10 mg [place] DAILY PRN PRN Reason: Constipation Stop: 02/21/23 16:58 Diphenhydramine HCl (Diphenhydramine Capsule 25 Mg Cap) 25 mg PO Q6H PRN PRN Reason: Allergic Rhinitis/Insomnia Stop: 02/21/23 16:58 Famotidine (Famotidine 20 Mg Tab) 20 mg PO Q12H PRN PRN Reason: Dyspepsia Stop: 02/21/23 16:58 Hydromorphone HCl (Hydromorphone Inj 0.5 Mg/0.5 Ml Syr) 0.5 mg IV Q3H PRN PRN Reason: MODERATE Pain (Scale 4,5,6) & Pre PT Stop: 02/05/23 16:58 Last Admin: 01/23/23 08:35 Dose: 0.5 mg Hydromorphone HCl (Hydromorphone Inj 1 Mg/Ml Syringe) 1 mg IV Q3H PRN PRN Reason: SEVERE Pain (Scale 7,8,9,10) Stop: 02/05/23 16:58 Last Admin: 01/23/23 11:27 Dose: 1 mg Hydroxyzine HCl (Hydroxyzine Hcl 25 Mg Tab) 25 mg PO Q8H PRN PRN Reason: Anxiety Stop: 02/21/23 16:58 Last Admin: 01/23/23 22:01 Dose: 25 mg Promethazine HCl 12.5 mg/ (Sodium Chloride) 50.5 mls @ 202 mls/hr IV Q6H PRN PRN Reason: Nausea &/or Vomiting Stop: 02/21/23 16:58 Lorazepam 0.5 mg/ Syringe 0.5 mls @ 2 mls/min IV Q8H PRN; Protocol PRN Reason: Sedation/Anxiety Stop: 02/21/23 16:58 Sodium Chloride (Nss) 1,000 mls @ 50 mls/hr IV .Q20H ONE Stop: 01/25/23 03:16 Last Admin: 01/24/23 08:00 Dose: 50 mls/hr Influenza Virus Vaccine Quadrival (Do Not Administer Flu Vaccine) 1 each N/A PRN PRN PRN Reason: Notification Stop: 02/21/23 16:58 Lisinopril (Lisinopril 10 Mg Tab) 10 mg PO QAM [facility] Stop: 02/22/23 08:59 Last Admin: 01/24/23 08:01 Dose: 10 mg Lorazepam (Lorazepam 0.5 Mg Tab) 0.5 mg PO Q8H PRN PRN Reason: Sedation/Anxiety Stop: 02/21/23 16:58 Magnesium Hydroxide (Magnesium Hydroxide Susp 30 Ml Udc) 30 ml PO Q24H PRN PRN Reason: Constipation Stop: 02/21/23 16:58 Metoclopramide HCl (Metoclopramide Hcl Inj 5 Mg/Ml 2 Ml Vial) 10 mg IV Q6H PRN PRN Reason: Nausea &/or Vomiting Stop: 02/21/23 16:58 Naloxone HCl (Naloxone Hcl 0.4 Mg/1 Ml Vial/Carp) 0.1 mg IV Q5M PRN PRN Reason: Oversedation/Resp depression Stop: 02/21/23 16:58 Ondansetron HCl (Ondansetron Inj 2 Mg/Ml 2 Ml Vial) 4 mg IV Q6H PRN PRN Reason: Nausea &/or Vomiting Stop: 02/21/23 16:58 Ondansetron HCl (Ondansetron 4 Mg Od Tab) 4 mg PO Q6H PRN PRN Reason: Nausea Stop: 02/21/23 16:58 Oxycodone HCl (Oxycodone Hcl Ir 5 Mg Tab (Immediate Release)) 5 - 10 mg PO Q4H PRN PRN Reason: Pain & Pre PT Stop: 02/05/23 16:58 Last Admin: 01/24/23 09:53 Dose: 10 mg Pneumococcal Polyvalent Vaccine (Do Not Administer Pneumococcal Vaccine) 1 each N/A PRN PRN PRN Reason: Notification Stop: 02/21/23 16:58 Polyethylene Glycol (Polyethylene (Miralax) 17 Gm Pack) 17 gm PO Q6 [facility] Stop: 02/22/23 05:59 Last Admin: 01/24/23 13:12 Dose: 17 gm Senna/Docusate Sodium (Docusate Sodium/Senna 50/8.6mg Tab) 2 tab PO HS [facility] Stop: 02/21/23 20:59 Last Admin: 01/23/23 21:19 Dose: 2 tab Sodium Biphosphate/Sodium Phosphate (Sod Phosphate/Sod Biphosphate Enema 132 Ml Btl) 132 ml PA ONE PRN PRN Reason: Constipation Stop: 02/21/23 16:58 Tramadol HCl (Tramadol Hcl 50 Mg Tablet) 50 - 100 mg PO Q4H PRN PRN Reason: Moderate-Severe pain & Pre PT Stop: 02/21/23 16:58 Umeclidinium [place] (Umeclidinium [place] 62.5mcg/Blister 7 Puffs/Inhaler) 1 puffs INH QAM [facility] Stop: 02/22/23 08:59 Last Admin: 01/24/23 08:01 Dose: 1 puffs Zinc Sulfate (Zinc Sulfate 220 Mg Capsule) 220 mg PO QPM [facility] Stop: 02/21/23 20:59 Last Admin: 01/23/23 21:19 Dose: Not Given
--- NOTE | 2023-01-24 15:59 | Electrocardiogram Report ---
Test Reason : Blood Pressure : / mmHG Vent. Rate : 075 BPM Atrial Rate : 066 BPM P-R Int : 000 ms QRS Dur : 082 ms QT Int : 394 ms P-R-T Axes : 000 004 044 degrees QTc Int : 439 ms Atrial fibrillation Abnormal ECG When compared with ECG of 29-DEC-2022 11:59, No significant change was found Confirmed by Ishmael Stevenson ([id number]) on 01/24/2023 3:59:02 PM Referred By: Leroy Costa Confirmed By:Ishmael Stevenson
[2023-01-24] MEDS: DOCUSATE SODIUM/SENNA 50/8.6MG TAB PO SCH (20:25)
[2023-01-24] MEDS: ZINC SULFATE 220 MG CAPSULE PO SCH (20:31)
[2023-01-24] MEDS: hydrOXYzine HCl 25 MG TAB PO PRN (21:44)
[2023-01-25] MEDS: POLYETHYLENE (MIRALAX) 17 GM PACK PO SCH ×3 (00:55→12:29)
[2023-01-25 07:10] LABS: Basophils # (auto) 0.02 K/uL (0.00-0.20); Basophils % (auto) 0.2 %; Eosinophils # (auto) 0.18 K/uL (0.00-0.50); Eosinophils % (auto) 2.1 %; Hematocrit (blood only) 30.7 % (42.0-52.0); Hemoglobin 10.1 g/dl (14.0-18.0); Immature Granulocytes # (auto) 0.03 K/uL (0.01-0.20); Immature Granulocytes % (auto) 0.3 %; Lymphocytes # (auto) 1.02 K/uL (1.20-3.40); Lymphocytes % (auto) 11.9 %; Mean Corpuscular Hemoglobin 28.9 pg (25.0-34.0); Mean Corpuscular Hgb Conc 32.9 g/dL (32.0-36.0); Mean Platelet Volume 9.5 fL (9.4-12.4); Monocytes # (auto) 0.85 K/uL (0.11-0.59); Monocytes % (auto) 9.9 %; Neutrophils # (auto) 6.48 K/uL (1.40-6.50); Neutrophils % (auto) 75.6 %; Platelet Count 143 K/uL (130-400); RDW Coefficient of Variation 12.6 % (11.5-14.5); RDW Standard Deviation 40.2 fL (36.4-46.3); Red Blood Count 3.49 M/uL (4.70-6.10); White Blood Count 8.58 K/ul (4.8-10.8)
[2023-01-25 07:19] LABS: BUN Creatinine Ratio 15.7 (10-20); Calcium 8.5 mg/dl (8.6-10.3); Creatinine Clr Calc Pharmacy 70.4 ml/min; Est GFR (African American) 97.6 ml/min; Est GFR (Non-African American) 84.2 ml/min; Magnesium 1.9 mg/dl (1.7-2.4); Phosphorus 3.1 mg/dl (2.5-4.9)
--- NOTE | 2023-01-25 08:47 | Orthopedic Progress Note ---
Date of Service January 25, 2023 Assessment & Plan (1) Neurogenic claudication due to lumbar spinal stenosis: Plan: Today we will have occupational therapy and physical therapy work with the patient. To determine if he is a candidate for rehab. Hopefully discharge in the next few days. Admission and Anticipated Discharge Date Admission Date: January 22, 2023 Subjective Back pain controlled with leg pain improved Physical Exam Physical Exam: Patient is currently in bed. Discussed with the testing. Results & Data Vital Signs (Past 12 Hours) Vital Signs Temp Pulse Resp BP BP Pulse Ox O2 Del Method 01/25/23 08:01 37.1 C 67 16 122/80 93 Room Air 01/24/23 21:23 37.3 C 67 16 113/71 93 Room Air Queries Orthopedic Spine Acute Posthemorrhagic Anemia: Yes
[2023-01-25] MEDS: hydrOXYzine HCl 25 MG TAB PO PRN ×2 (08:59→21:03)
[2023-01-25] MEDS: ASPIRIN 81 MG ECTAB PO SCH (09:00)
[2023-01-25] MEDS: lisinopril 10 MG TAB PO SCH (09:00)
[2023-01-25] MEDS: UMECLIDINIUM BROMIDE 62.5MCG/BLISTER 7 PUFFS/INHALER INH SCH (09:00)
[2023-01-25] MEDS: ATORVASTATIN 40 MG TAB PO SCH (09:00)
--- NOTE | 2023-01-25 15:25 | Hospitalist Progress Note ---
Date of Service January 25, 2023 Assessment & Plan (1) S/P spinal surgery: Plan: This is a 72yo M with a PMH of HTN, atrial fibrillation on Eliquis, remote history of CVA, COPD and other medical problems listed below who is POD#1 s/p removal of posterior segmental instrumentation L3-S1 and exploration of fusion L3-S1, number decompression with bilateral medial facetectomies and foraminotomies L2-L3 and posterior spinal fusion L2-L3 and placement posterior instrumentation L2-S1 by Dr. Costa. 01/22/2023: s/p removal of posterior segmental instrumentation L3-S1 and exploration of fusion L3-S1, number decompression with bilateral medial facetectomies and foraminotomies L2-L3 and posterior spinal fusion L2-L3 and placement posterior instrumentation L2-S1 by Dr. Costa. Per ortho for pain control, wound care, anticoagulation and activities Monitor H&H (EBL 650ml, no preop hgb in chart review). Postop hgb stable at 10.4, continue to monitor with AM labs Continue incentive spirometry, PT/OT when appropriate Remains medically stable and complaining of severe back pain without radiation Hemoglobin and electrolytes are stable and those were rechecked today 01/25/2023 Still has some back pain and getting physical therapy (2) Atrial fibrillation: Plan: Rate is controlled (3) On anticoagulant therapy: Plan: Not on rate control agent, holding Eliquis in perioperative setting, resume as able per Dr. Costa Eliquis has not been restarted yet We will get clarification from Dr. Costa before restarting Eliquis (4) Hypertension: Plan: Was slightly elevated at 146/78 in setting of post-op pain Currently BP downtrending, will hold PM amlodipine at this time Started on 2 bags of NSS Continue AM lisinopril for now, assess need to administer in the AM Blood pressure remains stable at 132/78 (5) Chronic obstructive pulmonary disease: Plan: Chronic, stable. Continue home inhalers as needed (6) Transient ischemic attack (TIA): Plan: Remote history, continue aspirin and statin DVT Ppx: SCDs per primary, resume Eliquis as able Code status: FULL PCP: Jerry Nava Dispo: Per primary service Admission and Anticipated Discharge Date Admission Date: January 22, 2023 Subjective 01/24/2023 The patient was seen and examined in medical floor He is a status post L2-L3 spinal decompression and fusion and redo instrumentation L3-S1 Complains back pain without radiation Still draining serosanguineous fluid 01/25/2023 The patient was seen and examined in medical floor He is a status post lumbar surgery and has been doing much better Still has pain in the back without radiation Denies any other significant symptoms Review of Systems Review of Systems: All systems reviewed and are unremarkable except as noted below Physical Exam Physical Exam: Lying in bed comfortably Constitutional: well developed, well nourished and + ill appearing Eyes: PERRL, conjunctivae normal, anicteric sclerae ENMT: external ear and nose normal, oropharynx normal Neck: trachea midline, no thyromegaly Respiratory: no respiratory distress Auscultation: lungs clear to auscultation bilaterally Cardiovascular: Rate/Rhythm: + irregularly irregular; not tachycardic Heart Sounds: normal S1 and normal S2; no murmur Extremities: no edema Gastrointestinal (Abdomen): Inspection/Auscultation: normal bowel sounds; abdomen not distended Percussion/Palpation: abdomen soft; abdomen nontender Musculoskeletal: No acute arthritis involving any joint Neurologic: normal touch/pain/proprioception and moves all extremities; no focal motor deficits Psychiatric: A+Ox3, euthymic affect Lymphatic: no cervical or axillary lymphadenopathy Results & Data Results & Data Vital Signs (Past 12 Hours) Vital Signs Temp Pulse Resp BP Pulse Ox O2 Del Method 01/25/23 08:01 37.1 C 67 16 122/80 93 Room Air Laboratory Results Short CBC 01/25/23 Range/Units 06:51 WBC 8.58 (4.8-10.8) K/ul Hgb 10.1 L (14.0-18.0) g/dl Hct 30.7 L (42.0-52.0) % Plt Count 143 (130-400) K/uL BMP 01/25/23 06:47 Sodium 139 Potassium 4.0 Chloride 105 Carbon Dioxide 29 BUN 14 Creatinine 0.89 Glucose 145 H Calcium 8.5 L Medications Administered Current Inpatient Medications Acetaminophen (Acetaminophen 500 Mg Tab) 1,000 mg PO Q8H PRN PRN Reason: MILD Pain Scale 1,2,3 & Pre PT Stop: 02/21/23 16:58 Al Hydrox/Mg Hydrox/Simethicone (Aluminum/Magnesium Susp 30 Ml Udc) 30 ml PO Q6H PRN PRN Reason: Dyspepsia Stop: 02/21/23 16:58 Albuterol (Albuterol Hfa 8 Gm Inhaler) 2 puffs INH QID PRN PRN Reason: sob Stop: 02/21/23 16:58 Amlodipine Besylate (Amlodipine Besylate 5 Mg Tab) 5 mg PO [facility] Stop: 02/21/23 20:59 Last Admin: 01/22/23 21:06 Dose: 5 mg Aspirin (Aspirin 81 Mg Ectab) 81 mg PO [facility] Stop: 02/22/23 08:59 Last Admin: 01/25/23 09:00 Dose: 81 mg Atorvastatin Calcium (Atorvastatin 40 Mg Tab) 40 mg PO [facility] Stop: 02/22/23 08:59 Last Admin: 01/25/23 09:00 Dose: 40 mg Bisacodyl (Bisacodyl 10 Mg Supp) 10 mg [place] DAILY PRN PRN Reason: Constipation Stop: 02/21/23 16:58 Diphenhydramine HCl (Diphenhydramine Capsule 25 Mg Cap) 25 mg PO Q6H PRN PRN Reason: Allergic Rhinitis/Insomnia Stop: 02/21/23 16:58 Famotidine (Famotidine 20 Mg Tab) 20 mg PO Q12H PRN PRN Reason: Dyspepsia Stop: 02/21/23 16:58 Hydromorphone HCl (Hydromorphone Inj 0.5 Mg/0.5 Ml Syr) 0.5 mg IV Q3H PRN PRN Reason: MODERATE Pain (Scale 4,5,6) & Pre PT Stop: 02/05/23 16:58 Last Admin: 01/23/23 08:35 Dose: 0.5 mg Hydromorphone HCl (Hydromorphone Inj 1 Mg/Ml Syringe) 1 mg IV Q3H PRN PRN Reason: SEVERE Pain (Scale 7,8,9,10) Stop: 02/05/23 16:58 Last Admin: 01/23/23 11:27 Dose: 1 mg Hydroxyzine HCl (Hydroxyzine Hcl 25 Mg Tab) 25 mg PO Q8H PRN PRN Reason: Anxiety Stop: 02/21/23 16:58 Last Admin: 01/25/23 08:59 Dose: 25 mg Promethazine HCl 12.5 mg/ (Sodium Chloride) 50.5 mls @ 202 mls/hr IV Q6H PRN PRN Reason: Nausea &/or Vomiting Stop: 02/21/23 16:58 Lorazepam 0.5 mg/ Syringe 0.5 mls @ 2 mls/min IV Q8H PRN; Protocol PRN Reason: Sedation/Anxiety Stop: 02/21/23 16:58 Influenza Virus Vaccine Quadrival (Do Not Administer Flu Vaccine) 1 each N/A PRN PRN PRN Reason: Notification Stop: 02/21/23 16:58 Lisinopril (Lisinopril 10 Mg Tab) 10 mg PO QAM [facility] Stop: 02/22/23 08:59 Last Admin: 01/25/23 09:00 Dose: 10 mg Lorazepam (Lorazepam 0.5 Mg Tab) 0.5 mg PO Q8H PRN PRN Reason: Sedation/Anxiety Stop: 02/21/23 16:58 Magnesium Hydroxide (Magnesium Hydroxide Susp 30 Ml Udc) 30 ml PO Q24H PRN PRN Reason: Constipation Stop: 02/21/23 16:58 Metoclopramide HCl (Metoclopramide Hcl Inj 5 Mg/Ml 2 Ml Vial) 10 mg IV Q6H PRN PRN Reason: Nausea &/or Vomiting Stop: 02/21/23 16:58 Naloxone HCl (Naloxone Hcl 0.4 Mg/1 Ml Vial/Carp) 0.1 mg IV Q5M PRN PRN Reason: Oversedation/Resp depression Stop: 02/21/23 16:58 Ondansetron HCl (Ondansetron Inj 2 Mg/Ml 2 Ml Vial) 4 mg IV Q6H PRN PRN Reason: Nausea &/or Vomiting Stop: 02/21/23 16:58 Ondansetron HCl (Ondansetron 4 Mg Od Tab) 4 mg PO Q6H PRN PRN Reason: Nausea Stop: 02/21/23 16:58 Oxycodone HCl (Oxycodone Hcl Ir 5 Mg Tab (Immediate Release)) 5 - 10 mg PO Q4H PRN PRN Reason: Pain & Pre PT Stop: 02/05/23 16:58 Last Admin: 01/24/23 20:25 Dose: 5 mg Pneumococcal Polyvalent Vaccine (Do Not Administer Pneumococcal Vaccine) 1 each N/A PRN PRN PRN Reason: Notification Stop: 02/21/23 16:58 Polyethylene Glycol (Polyethylene (Miralax) 17 Gm Pack) 17 gm PO Q6 [facility] Stop: 02/22/23 05:59 Last Admin: 01/25/23 12:29 Dose: 17 gm Senna/Docusate Sodium (Docusate Sodium/Senna 50/8.6mg Tab) 2 tab PO HS [facility] Stop: 02/21/23 20:59 Last Admin: 01/24/23 20:25 Dose: 2 tab Sodium Biphosphate/Sodium Phosphate (Sod Phosphate/Sod Biphosphate Enema 132 Ml Btl) 132 ml [place] ONE PRN PRN Reason: Constipation Stop: 02/21/23 16:58 Tramadol HCl (Tramadol Hcl 50 Mg Tablet) 50 - 100 mg PO Q4H PRN PRN Reason: Moderate-Severe pain & Pre PT Stop: 02/21/23 16:58 Umeclidinium [place] (Umeclidinium [facility] 62.5mcg/Blister 7 Puffs/Inhaler) 1 puffs INH QAM [facility] Stop: 02/22/23 08:59 Last Admin: 01/25/23 09:00 Dose: 1 puffs Zinc Sulfate (Zinc Sulfate 220 Mg Capsule) 220 mg PO QPM [facility] Stop: 02/21/23 20:59 Last Admin: 01/24/23 20:31 Dose: Not Given
[2023-01-25] MEDS: oxyCODONE HCL IR 5 MG TAB (IMMEDIATE RELEASE) PO PRN (21:02)
[2023-01-25] MEDS: ZINC SULFATE 220 MG CAPSULE PO SCH (21:04)
[2023-01-25] MEDS: DOCUSATE SODIUM/SENNA 50/8.6MG TAB PO SCH (21:04)
[2023-01-26] MEDS ORDERED: LOPERAMIDE HCL 2 MG CAP PO STA (05:38)
[2023-01-26 06:02] LABS: Basophils # (auto) 0.04 K/uL (0.00-0.20); Basophils % (auto) 0.5 %; Eosinophils # (auto) 0.24 K/uL (0.00-0.50); Eosinophils % (auto) 2.8 %; Hematocrit (blood only) 28.6 % (42.0-52.0); Hemoglobin 9.8 g/dl (14.0-18.0); Immature Granulocytes # (auto) 0.02 K/uL (0.01-0.20); Immature Granulocytes % (auto) 0.2 %; Lymphocytes # (auto) 1.39 K/uL (1.20-3.40); Lymphocytes % (auto) 16.1 %; Mean Corpuscular Hemoglobin 29.5 pg (25.0-34.0); Mean Corpuscular Hgb Conc 34.3 g/dL (32.0-36.0); Mean Corpuscular Volume 86.1 fL (80.0-100.0); Mean Platelet Volume 9.6 fL (9.4-12.4); Monocytes # (auto) 0.87 K/uL (0.11-0.59); Monocytes % (auto) 10.1 %; Neutrophils # (auto) 6.09 K/uL (1.40-6.50); Neutrophils % (auto) 70.3 %; Platelet Count 158 K/uL (130-400); RDW Coefficient of Variation 12.6 % (11.5-14.5); RDW Standard Deviation 39.8 fL (36.4-46.3); Red Blood Count 3.32 M/uL (4.70-6.10); White Blood Count 8.65 K/ul (4.8-10.8)
[2023-01-26 06:18] LABS: Phosphorus 3.6 mg/dl (2.5-4.9)
[2023-01-26] MEDS: lisinopril 10 MG TAB PO SCH (07:58)
[2023-01-26] MEDS: ATORVASTATIN 40 MG TAB PO SCH (07:58)
[2023-01-26] MEDS: ASPIRIN 81 MG ECTAB PO SCH (07:58)
[2023-01-26] MEDS: UMECLIDINIUM BROMIDE 62.5MCG/BLISTER 7 PUFFS/INHALER INH SCH (07:59)
--- NOTE | 2023-01-26 09:35 | Discharge Summary ---
Date of Service January 26, 2023 Admission HPI Per Admitting Provider This is a 72-year-old male who presents with chronic persistent back and leg pain after failing extensive course of nonoperative care is here for surgical invention. Admission Exam (Per Admitting) Constitutional average body habitus Eyes normal visual [place]cala by confrontation ENMT external ear and nose normal, oropharynx normal Neck normal visual inspection Respiratory normal respiratory effort Cardiovascular Extremities: normal capillary refill Gastrointestinal (Abdomen) Inspection/Auscultation: abdomen normal to inspection Musculoskeletal Spine: + pain with thoraco-lumbar ROM and + lumbar spinal tenderness Extremities: extremities normal to inspection Skin no rashes, warm and dry Neurologic normal touch/pain/proprioception and moves all extremities Psychiatric A+Ox3, euthymic affect Discharge Data Consultations 01/22/23 16:59 Consult Hospitalist Routine Procedures Performed Operation Date: 01/22/23 11:55 Actual Procedures p L2-L3 Spinal Decompression and Fusion, Re-Instrumentation L3-S1, Spinal Cord Monitoring(Not Applicable) - Leroy Costa DO s Removal of Hardware L3-S1(Not Applicable) - Leroy Costa DO Hospital Course (1) S/P spinal surgery: Alex is being discharged home with home physical therapy on postoperative day 4 status post L2-S1 decompression and fusion. Pain is under control. He is completing steps in physical therapy. LUIS drain output last shift was 20 cc. He has had a bowel movement. Lab values have been stable. Discharge Instructions ACTIVITY RECOMMENDATIONS: SELF CARE INSTRUCTIONS AFTER THORACIC/LUMBAR FUSIONS 1. You may walk to your tolerance. It is good exercise for your legs and back. Expect some back and intermittent leg aches and pains. 2. You may perform "counter-top" level activities (make a sandwich, paolo with a project, etc.). 3. No bending or lifting of more than 10 pounds or back twisting of any nature (roll like a log when turning in bed). 4. You may ride in a car for 20-30 minutes at a time. No driving until after your first visit with your doctor. 5. Frequent changes of position and restricting sitting to 30 minutes at a time will help limit the amount of back spasms and stiffness you may experience. 6. You may discontinue the use of ambulatory aids (cane, crutches, etc.) once your strength and confidence allow. 7. You may supervisor machine setter the shower and let water strike your incision when you arrive home at least once daily. Do not take a tub bath, sit in a hot tub or go into a swimming pool until after your first recheck in the office. SPECIAL CARE INSTRUCTIONS: VERY IMPORTANT TO READ AND REVIEW A. Your surgical incision has been closed with a cosmetic suture under the skin that will dissolve in about 6 weeks. In 14 days, you can use a pair of clean scissors and cut the suture that is left outside of the skin at the ends of your incision. 1. The small skin tapes can be removed 7 days after surgery if they have not fallen off by that point. 2. You may keep the wound open to air as much as possible to promote healing after post-op day number 5 unless told otherwise by your doctor. 3. If you think the wound looks like it is becoming infected (redness or worsening drainage) and/or you are experiencing fever, chill or worsening back pain and muscle spasms, contact the office so that we may evaluate you as soon as possible. B. Complications are uncommon, but please contact us if you have any signs or symptoms of: 1. wound infection (fever higher than 102.5 degrees F, redness, separation of wound, drainage, or increasing pain from the incision) 2. blood clots in legs (pain, swelling, redness and warmth in legs) 3. urinary tract infection (fever higher than 102.5 degrees F, burning upon urination or increased frequency of urination) 4. nerve problems (inability to walk on your toes or heels, numbness, loss of bowel or bladder control) 5. any other symptoms that concern you C. Please call the office at if you have any concerns or questions about your operation or recovery. D. No smoking! Smoking drastically decreases the chance of a solid fusion. E. Do not take any anti-inflammatory medications (Indocin, Advil, Motrin, Aspirin, Naprosyn, etc.) as these may inhibit the chance of a solid fusion. Tylenol is okay to take for pain. MANAGING PAIN AFTER SPINAL SURGERY 1. Narcotic medication is intended for short-term use and will be provided for surgical pain. Surgical pain usually lasts for a period of 4-6 weeks. Narcotic medication includes Percocet, Vicodin, Darvocet, Tylenol #3 or Lortab. 2. Longer-term pain is more appropriately treated with non-narcotic medication such as Tylenol ES. 3. Muscle spasm is not appropriately treated with narcotics. Muscle relaxers such as Soma, Flexeril or Skelaxin can be used along with Tylenol ES. 4. Remember that we all live with some "aches and pains". This is not unusual or uncommon after an injury or as we get older. a. Back pain is expected and may include muscle spasms for 4 to 6 weeks after surgery. The pain should gradually improve. If the pain worsens for no apparent reason, please contact the office. b. Intermittent leg pain may also be experienced and should not be concerned about unless it worsens for no apparent reason. If so, please contact the office. 5. We will provide appropriate medication within the normal guidelines of their prescribed use. We will also be very cautious and aware of potential abuse and extended duration of patients' medication needs. a. Pain medications are for your comfort and to assist with sleep and rest so that the tissue can heal. They are not provided in order to return to normal activity and should not be used through the day. To do so or worsening pain at night can result from ongoing tissue damage and development of tolerance to the prescribed medicine. 6. Please allow 2-3 days to process refills. Prescriptions will not be mailed but must be picked up at the office. FOLLOW UP VISIT: Keep your scheduled follow-up appointment. Any questions, please call the office at .
[2023-01-26] MEDS: oxyCODONE HCL IR 5 MG TAB (IMMEDIATE RELEASE) PO PRN (11:14)
== END 2023-01-26 11:58 | disposition home health service (06) | DRG 454 ==
LOC: ASU 10:18 → 3E 15:05